=== PATIENT | female | born 1945 | race Caucasian/White ===

== ENCOUNTER → 2020-05-23 11:15 | Outpatient (CLI) | payer OTHER, SELFPAY ==
--- NOTE | ~2020-05-23 | XR_ITS ---
XR clavicle RT DATE: 05/23/2020 12:01 INDICATION: Clavicle enlargement TECHNIQUE: AP and angled AP views COMPARISON: None FINDINGS: No fracture, dislocation, periosteal reaction or bone destruction of the clavicle is eviden t. IMPRESSION: Negative right clavicle Reviewed, dictated and finalized at location A. IMPRESSION: Negative right clavicle
== END ==
PROVIDERS: Visit Provider Family Medicine
DX: M89.319 Hypertrophy of bone, unspecified shoulder (principal)
CPT/HCPCS: 73000